=== PATIENT | female | born 1960 | race Caucasian/White ===

== ENCOUNTER → 2021-07-26 | Outpatient (CLI) | payer BC ==
[2021-07-26 17:26] LABS: ALT 26 U/L (8-44); AST 18 U/L (13-35); Chol/HDL Ratio 3.02 Ratio; LDL Cholesterol,Calculated 89.4 mg/dL (0.0-131.0)
== END ==
LOC: LABWHC1 07:27
PROVIDERS: ATTEND Internal Medicine
DX: E78.2 Mixed hyperlipidemia (principal)
CPT/HCPCS: 36415; 80061; 84450; 84460

== ENCOUNTER → 2022-05-02 | Outpatient (CLI) | payer BC ==
[2022-05-02 10:55] LABS: Basophils # (A) 0.08 X 10*3/uL (0.00-0.10); Basophils % (A) 1.8 %; Eosinophils # (A) 0.09 X 10*3/uL (0.04-0.35); Eosinophils % (A) 2.1 %; HCT 43.1 % (37.2-46.3); HGB 14.4 g/dL (12.0-15.0); Immature Grans, Automated 0.2 %; Lymphocytes # (A) 1.62 X 10*3/uL (0.90-5.00); MCH 31.6 pg (27.0-32.0); MCHC 33.4 g/dL (32.0-37.0); MCV 94.7 fL (80.0-97.0); Monocytes # (A) 0.51 X 10*3/uL (0.20-1.00); Monocytes % (A) 11.6 %; NRBC Per 100 WBC 0 /100 WBCS (0.0-0.0); Neutrophils # (A) 2.07 X 10*3/uL (1.80-7.70); Neutrophils % (A) 47.3 %; Platelet Count 263 X 10*3/uL (140-440); RBC 4.55 X 10*6/uL (4.10-5.20); WBC 4.38 X 10*3/uL (4.50-10.00)
[2022-05-02 11:14] LABS: ALT 32 U/L (8-44); AST 26 U/L (13-35); African American GFR (CKD) 98.9 (60.0-200.0); Albumin 4.7 g/dL (3.8-4.9); Albumin/Globulin Ratio 2.21 (1.60-3.17); Alkaline Phosphatase 113 U/L (41-126); BUN/Creat Ratio 11.38 Ratio (12.00-20.00); Blood Urea Nitrogen 8.6 mg/dL (9.0-27.0); Calcium 9.9 mg/dL (8.7-10.3); Carbon Dioxide 28.2 mmol/L (20.0-27.5); Chloride 107 mmol/L (96-109); Chol/HDL Ratio 2.84 Ratio; Globulin 2.1 g/dL (1.6-3.3); Glucose 92 mg/dL (70-110); LDL Cholesterol,Calculated 90.3 mg/dL (0.0-131.0); Non-African American GFR(CKD) 85.3 (60.0-200.0); Potassium 4.9 mmol/L (3.5-5.5); Sodium 144 mmol/L (135-145); Total Protein 6.8 g/dL (6.2-8.2); VLDL Calculation 11.52 mg/dL (5.00-40.00)
== END | disposition home or self-care (01) ==
LOC: LABWHC1 07:02
PROVIDERS: ATTEND Internal Medicine
DX: E78.2 Mixed hyperlipidemia (principal); R10.84 Generalized abdominal pain
CPT/HCPCS: 36415; 80053; 80061; 85025

== ENCOUNTER → 2022-05-23 | Outpatient (CLI) | payer BC ==
--- NOTE | 2022-05-23 10:02 | CT ---
EXAMINATION TYPE: CT abdomen pelvis w con DATE OF EXAM: 05/23/2022 COMPARISON: NONE HISTORY: 61-year-old female R1 0.84, LLQ abdominal pain. TECHNIQUE: Contiguous axial scanning of the abdomen and pelvis following administration of 70 ml Isov ue 300 IV contrast. Delayed images through the kidneys and coronal/sagittal reconstructions performe d. CT DLP: 802 mGycm Automated exposure control for dose reduction was used. FINDINGS: Heart normal size with trace anterior basilar pericardial fluid. Lung bases clear without p leural effusion. The liver, gallbladder, adrenal glands, kidneys, spleen, and pancreas show no gross abnormality. Bile duct measures 5 mm, within normal limits. Portal venous system is patent. Mild to moderate atherosclerotic calcifications infrarenal abdominal aorta and more moderate within t he bilateral common iliac arteries. No dilated small bowel, free fluid, or free air. No mesenteric or retroperitoneal lymphadenopathy. Normal appendix. There is mild to moderate stool in the left side of the colon. Oral contrast progres sed to the junction of the descending and sigmoid colon. No pericolonic inflammatory change seen. Pos sible mild circumferential wall thickening of the rectum. Bladder urine distended. Multiple small pelvic phleboliths. Uterus surgically absent. No abnormal flu id collection in the pelvis or pelvic lymphadenopathy. Bones: There is a fixed grade 1, nearly grade 2 anterolisthesis at L5-S1 with interbody ankylosis. Ac centuated lower lumbar lordosis. Degenerative grade 1 retrolisthesis L4-L5. Grade 1 retrolisthesis T1 0-T11. Dextroconvex curvature of the thoracic spine. IMPRESSION: 1. MILD CIRCUMFERENTIAL WALL THICKENING OF THE RECTUM MAY REFLECT A HEARING STOOL MATERIAL. CORRELATE TO EXCLUDE A NONSPECIFIC MILD COLITIS. 2. OTHERWISE, NO ACUTE INFLAMMATORY PROCESS IDENTIFIED IN THE ABDOMEN OR PELVIS TO EXPLAIN THE PATIEN T'S SYMPTOMS.
== END | disposition home or self-care (01) ==
LOC: RADCTMAIN 06:16
PROVIDERS: ATTEND Family Medicine
DX: R10.84 Generalized abdominal pain (principal); R10.2 Pelvic and perineal pain
CPT/HCPCS: 74177; Q9967

== ENCOUNTER 2022-07-11 09:57 | Day surgery (SDC) | payer BC ==
[2022-07-09 13:38] VITALS: BMI 21.9
[~2022-07-11 09:57] MED LIST: LACTATED RINGERS 1,000 ML IV SCH
[2022-07-11 11:20] VITALS: TEMP 97.4
[2022-07-11] MEDS ORDERED: PROPOFOL 10 MG/ML 20 ML VIAL IV ONE (12:23)
--- NOTE | 2022-07-11 12:35 | P.PCN ---
Date of Procedure: 07/11/22 Procedure(s) Performed: BRIEF HISTORY: Patient is a 61-year-old pleasant male scheduled for an elective colonoscopy as a part of screening for colon cancer. Her mother was diagnosed with colon cancer at age 75. PROCEDURE PERFORMED: Colonoscopy. PREOPERATIVE DIAGNOSIS: Screening for colon cancer. IV sedation per Anesthesia. PROCEDURE: After informed consent was obtained, the patient, was brought into the endoscopy unit. IV sedation was administered by Anesthesia under continuous monitoring. Digital rectal examination was normal. Initially the Olympus CF-160 flexible video colonoscope was then inserted in the rectum, gradually advanced into the cecum without any difficulty. Careful examination was performed as the scope was gradually being withdrawn. Ileocecal valve and the appendiceal orifice were visualized and appeared normal. Prep was excellent. Mucosa of the cecum, ascending colon, transverse colon, descending colon, sigmoid colon, and rectum appeared normal. Retroflexion was performed in the rectum and no lesions were seen. The patient tolerated the procedure well. IMPRESSION: Normal-appearing colon from rectum to cecum with no evidence of colorectal neoplasia. RECOMMENDATIONS: Findings of this examination were discussed with the patient as well as her family.. She was advised to have a repeat screening colonoscopy in 5 years because of the family history of colon cancer.
[2022-07-11 13:01] VITALS: BP 122/74; PULSE 54; RESP 16
== END 2022-07-11 13:19 | disposition home or self-care (01) ==
LOC: ORWHC2ENDO 09:57
PROVIDERS: ATTEND Internal Medicine Gastroenterology
DX: Z12.11 Encounter for screening for malignant neoplasm of colon (principal); Z80.0 Family history of malignant neoplasm of digestive organs; E78.5 Hyperlipidemia, unspecified; M54.9 Dorsalgia, unspecified; Z98.890 Other specified postprocedural states; Z98.41 Cataract extraction status, right eye; Z98.42 Cataract extraction status, left eye; Z79.899 Other long term (current) drug therapy; Z88.5 Allergy status to narcotic agent; Z88.0 Allergy status to penicillin
CPT/HCPCS: 45378; J2704

== ENCOUNTER 2024-10-16 00:38 | Emergency (ER) | payer BC ==
[2024-10-16 00:44] VITALS: RESP 18; TEMP 98.9
--- NOTE | 2024-10-16 01:15 | ED ---
General Adult HPI - General Source: patient Mode of arrival: ambulatory Limitations: no limitations <Abby Cruz - Last Filed: 10/16/24 03:49> - General Source: patient, RN notes reviewed, old records reviewed Mode of arrival: ambulatory Limitations: no limitations - History of Present Illness -: days(s) Quality: aching Consistency: intermittent Improves with: none Worsens with: none Associated Symptoms: loss of appetite, malaise, nausea/vomiting, weakness Treatments Prior to Arrival: none <Fredrick Holland - Last Filed: 10/16/24 06:45> - General Chief complaint: ENT Stated complaint: Pain Time Seen by Provider: 10/16/24 01:15 - History of Present Illness Initial comments: Patient is a 63-year-old female presenting to the ER for evaluation of generalized pain. Patient states for the past week and a half she has had a headache, sore throat and upset stomach. She also reports "sand-like" stool and light brown in color. She reports her abdominal pain is like a cramping pain in her lower abdomen. She denies any hematochezia, melena, nausea, vomiting. Patient has taken [id number] Tylenol without relief of symptoms. Patient states she can "no longer take the pain" which prompted emergency department visit. Patient admits to chills but denies any known fevers, cough, congestion, chest pain, shortness of breath, urinary complaints or peripheral edema. Patient has no significant past medical history. No other complaints. (Abby Cruz) This is a 63-year-old female to the ER for generalized pain generalized pain with nausea vomiting and diarrhea occasional abdominal pain (Fredrick Holland) - Related Data Home Medications Medication Instructions Recorded Confirmed Calcicium 2,400 mg PO DAILY 07/09/22 Evolocumab [Repatha Sureclick] 0 mg SQ Q14D 07/09/22 07/11/22 Ezetimibe [Zetia] 10 mg PO DAILY 07/09/22 07/11/22 Leflunomide [Arava] 20 mg PO HS 07/09/22 07/11/22 Multivit with Calcium,Iron,Min 1 each PO DAILY 07/09/22 07/09/22 [Women's Multivitamin] Turmeric Root Extract [Turmeric] 500 mg PO DAILY 07/09/22 07/09/22 Ubidecarenone [Coenzyme Q10] 200 mg PO DAILY 07/09/22 07/09/22 Allergies Allergy/AdvReac Type Severity Reaction Status Date / Time morphine AdvReac Itching Verified 10/16/24 00:40 Penicillins AdvReac YEAST Verified 10/16/24 00:40 INFECTION Review of Systems ROS Other: All systems not noted in ROS Statement are negative. <Abby Cruz - Last Filed: 10/16/24 03:49> ROS Other: All systems not noted in ROS Statement are negative. <Fredrick Holland - Last Filed: 10/16/24 06:45> ROS Statement: Those systems with pertinent positive or pertinent negative responses have been documented in the HPI. Past Medical History Past Medical History: Hyperlipidemia, Rheumatoid Arthritis (RA) History of Any Multi-Drug Resistant Organisms: None Reported Past Surgical History: Back Surgery, Hysterectomy, Orthopedic Surgery, Tonsillectomy Additional Past Surgical History / Comment(s): BILAT Carpel tunnel, BILAT TENNIS ELBOW, RT MIDDLE EAR BONE REPLACED, SPINAL FUSION. COLONOSCOPY Past Anesthesia/Blood Transfusion Reactions: No Reported Reaction Past Psychological History: No Psychological Hx Reported Smoking Status: Former smoker Past Alcohol Use History: None Reported Past Drug Use History: None Reported - Past Family History Mother Family Medical History: Cancer <Abby Cruz - Last Filed: 10/16/24 03:49> General Exam Limitations: no limitations General appearance: alert, in no apparent distress Respiratory exam: Present: normal lung sounds bilaterally. Absent: respiratory distress, wheezes, rales, rhonchi, stridor Cardiovascular Exam: Present: regular rate, normal rhythm, normal heart sounds. Absent: systolic murmur, diastolic murmur, rubs, gallop, clicks GI/Abdominal exam: Present: soft, tenderness (Lower quadrants), normal bowel sounds Extremities exam: Present: normal inspection, full ROM, normal capillary refill. Absent: tenderness, pedal edema, joint swelling, calf tenderness Neurological exam: Present: alert, oriented X3, CN II-XII intact Skin exam: Present: warm, dry, intact, normal color. Absent: rash <Abby Cruz - Last Filed: 10/16/24 03:49> General appearance: alert, in no apparent distress Head exam: Present: atraumatic, normocephalic, normal inspection Eye exam: Present: normal appearance, PERRL, EOMI. Absent: scleral icterus, conjunctival injection, periorbital swelling ENT exam: Present: normal exam, mucous membranes moist Neck exam: Present: normal inspection. Absent: tenderness, meningismus, lymphadenopathy Respiratory exam: Present: normal lung sounds bilaterally. Absent: respiratory distress, wheezes, rales, rhonchi, stridor Cardiovascular Exam: Present: normal rhythm, tachycardia, normal heart sounds. Absent: systolic murmur, diastolic murmur, rubs, gallop, clicks GI/Abdominal exam: Present: soft, normal bowel sounds. Absent: distended, tenderness, guarding, rebound, rigid Extremities exam: Present: normal inspection, full ROM, normal capillary refill. Absent: tenderness, pedal edema, joint swelling, calf tenderness Back exam: Present: normal inspection Neurological exam: Present: alert, oriented X3, CN II-XII intact Psychiatric exam: Present: normal affect, normal mood Skin exam: Present: warm, dry, intact, normal color. Absent: rash <Fredrick Holland - Last Filed: 10/16/24 06:45> Course <Fredrick Holland - Last Filed: 10/16/24 06:45> Vital Signs 10/16/24 10/16/24 00:41 04:24 Temperature 98.9 F Pulse Rate 122 H 95 Respiratory 18 18 Rate Blood Pressure 117/73 104/72 O2 Sat by Pulse 96 94 L Oximetry - Reevaluation(s) Reevaluation #1: 10/16/24 06:44 Medical records reviewed (Fredrick Holland) Reevaluation #2: 10/16/24 06:45 Patient symptoms improved (Fredrick Holland) Reevaluation #3: 10/16/24 06:45 Patient informed of results questions answered (Fredrick Holland) Medical Decision Making - Lab Data Result diagrams: 10/16/24 01:19 10/16/24 01:19 <Abby Cruz - Last Filed: 10/16/24 03:49> - Lab Data Result diagrams: 10/16/24 01:19 10/16/24 01:19 - Radiology Data Radiology results: report reviewed (CT abdomen pelvis negative for acute disease), image reviewed <Fredrick Holland Donny - Last Filed: 10/16/24 06:45> - Medical Decision Making Was pt. sent in by a medical professional or institution (, [facility], REFRIGERATING ENGINEER HEAD, urgent care, hospital, or penitentiary...) When possible be specific @ -No Did you speak to anyone other than the patient for history (EMS, parent, family, police, friend...)? What history was obtained from this source @ -No Did you review nursing and triage notes (agree or disagree)? Why? @ -I reviewed and agree with nursing and triage notes Were old charts reviewed (outside hosp., previous admission, EMS record, old EKG, old radiological studies, urgent care reports/EKG's, penitentiary records)? Report findings @ -No old charts were reviewed Differential Diagnosis (chest pain, altered mental status, abdominal pain women, abdominal pain men, vaginal bleeding, weakness, fever, dyspnea, syncope, headache, dizziness, GI bleed, back pain, seizure, CVA, palpatations, mental health, musculoskeletal)? @ -Differential Abdominal Pain Women:Appendicitis, Cholecystitis, diverticulosis, ischemic bowel, pancreatitis, hepatitis, UTI, gastroenteritis, AAA, incarcerated hernia, bowel obstruction, constipation, inflammatory bowel, hepatitis, peptic ulcer disease, splenic infarction, perforated viscus, vulvitis, ovarian torsion, PID, kidney stone, placenta abruption, this is not meant to be an all-inclusive list EKG interpreted by me (3pts min.). @ -None done X-rays interpreted by me (1pt min.). @ -None done CT interpreted by me (1pt min.). @ -Pending U/S interpreted by me (1pt. min.). @ -None done What testing was considered but not performed or refused? (CT, X-rays, U/S, labs)? Why? @ -None What meds were considered but not given or refused? Why? @ -None Did you discuss the management of the patient with other professionals (professionals i.e. ANJELICA Apodaca, REFRIGERATING ENGINEER HEAD, lab, RT, psych nurse, social scientist, geosciences professor, teacher, adult probation officer, case manager specialist)? Give summary @ -No Was smoking cessation discussed for >3mins.? @ -No Was critical care preformed (if so, how long)? @ -No Were there social determinants of health that impacted care today? How? (Homelessness, low income, unemployed, alcoholism, drug addiction, transportation, low edu. Level, literacy, decrease access to med. care, long-term, rehab)? @ -No Was there de-escalation of care discussed even if they declined (Discuss DNR or withdrawal of care, Hospice)? DNR status @ -No What co-morbidities impacted this encounter? (DM, HTN, Smoking, COPD, CAD, Cancer, CVA, ARF, Chemo, Hep., AIDS, mental health diagnosis, sleep apnea, morbid obesity)? @ -None Was patient admitted / discharged? Hospital course, mention meds given and route, prescriptions, significant lab abnormalities, going to OR and other pertinent info. @ -[63-year-old female presented to the ER for evaluation of headache, sore throat and abdominal pain. Vitals within acceptable limits. Laboratory studies showed a leukocytosis at 12.7 with a left shift. Viral swabs negative. Urinalysis showing [address] WBC[address] rare bacteria. CT abdomen pelvis pending at time of signout to Dr. Smith at my shift completion. (Abby Cruz) 63 female to ER for evaluation abdominal pain normal CT scan here in the ER lab testing is normal patient given adequate hydration and symptom control here in the ER and can be discharged home (Fredrick Holland) - Lab Data Lab Results 10/16/24 10/16/24 10/16/24 Range/Units 00:45 01:19 01:19 WBC 12.7 H (3.8-10.6) k/uL RBC 3.94 (3.80-5.40) m/uL Hgb 11.9 (11.4-16.0) gm/dL Hct 37.3 (34.0-46.0) % MCV 94.7 (80.0-100.0) fL MCH 30.2 (25.0-35.0) pg MCHC 31.9 (31.0-37.0) g/dL RDW 12.0 (11.5-15.5) % Plt Count 552 H (150-450) k/uL MPV 7.1 Neutrophils % 83 % Lymphocytes % 7 % Monocytes % 6 % Eosinophils % 3 % Basophils % 0 % Neutrophils # 10.6 H (1.3-7.7) k/uL Lymphocytes # 0.9 L (1.0-4.8) k/uL Monocytes # 0.7 (0-1.0) k/uL Eosinophils # 0.4 (0-0.7) k/uL Basophils # 0.0 (0-0.2) k/uL Sodium 133 L (137-145) mmol/L Potassium 3.5 (3.5-5.1) mmol/L Chloride 96 L (98-107) mmol/L Carbon Dioxide 28 (22-30) mmol/L Anion Gap 9 mmol/L BUN 8 (7-17) mg/dL Creatinine 0.62 (0.52-1.04) mg/dL Est GFR (CKD-EPI)AfAm >90 (>60 ml/min/1.73 sqM) Est GFR (CKD-EPI)NonAf >90 (>60 ml/min/1.73 sqM) Glucose 117 H (74-99) mg/dL Calcium 8.8 (8.4-10.2) mg/dL Total Bilirubin 0.8 (0.2-1.3) mg/dL AST 18 (14-36) U/L ALT 11 (4-34) U/L Alkaline Phosphatase 97 (38-126) U/L Total Protein 5.6 L (6.3-8.2) g/dL Albumin 2.9 L (3.5-5.0) g/dL Amylase 48 (30-110) U/L Lipase 71 (23-300) U/L Urine Color Urine Appearance (Clear) Urine pH (5.0-8.0) Ur Specific Worley (1.001-1.035) Urine Protein (Negative) Urine Glucose (UA) (Negative) Urine Ketones (Negative) Urine Blood (Negative) Urine Nitrite (Negative) Urine Bilirubin (Negative) Urine Urobilinogen (<2.0) mg/dL Ur Leukocyte Esterase (Negative) Urine RBC (0-5) /hpf Urine WBC (0-5) /hpf Ur Squamous Epith Cells (0-4) /hpf Amorphous Sediment (None) /hpf Urine Bacteria (None) /hpf Hyaline Casts (0-2) /lpf Urine Mucus (None) /hpf Influenza Type A (PCR) Not Detected (Not Detectd) Influenza Type B (PCR) Not Detected (Not Detectd) RSV (PCR) Not Detected (Not Detectd) SARS-CoV-2 (PCR) Not Detected (Not Detectd) 10/16/24 Range/Units 01:45 WBC (3.8-10.6) k/uL RBC (3.80-5.40) m/uL Hgb (11.4-16.0) gm/dL Hct (34.0-46.0) % MCV (80.0-100.0) fL MCH (25.0-35.0) pg MCHC (31.0-37.0) g/dL RDW (11.5-15.5) % Plt Count (150-450) k/uL MPV Neutrophils % % Lymphocytes % % Monocytes % % Eosinophils % % Basophils % % Neutrophils # (1.3-7.7) k/uL Lymphocytes # (1.0-4.8) k/uL Monocytes # (0-1.0) k/uL Eosinophils # (0-0.7) k/uL Basophils # (0-0.2) k/uL Sodium (137-145) mmol/L Potassium (3.5-5.1) mmol/L Chloride (98-107) mmol/L Carbon Dioxide (22-30) mmol/L Anion Gap mmol/L BUN (7-17) mg/dL Creatinine (0.52-1.04) mg/dL Est GFR (CKD-EPI)AfAm (>60 ml/min/1.73 sqM) Est GFR (CKD-EPI)NonAf (>60 ml/min/1.73 sqM) Glucose (74-99) mg/dL Calcium (8.4-10.2) mg/dL Total Bilirubin (0.2-1.3) mg/dL AST (14-36) U/L ALT (4-34) U/L Alkaline Phosphatase (38-126) U/L Total Protein (6.3-8.2) g/dL Albumin (3.5-5.0) g/dL Amylase (30-110) U/L Lipase (23-300) U/L Urine Color Yellow Urine Appearance Cloudy H (Clear) Urine pH 6.0 (5.0-8.0) Ur Specific [place] 1.020 (1.001-1.035) Urine Protein 1+ H (Negative) Urine Glucose (UA) Negative (Negative) Urine Ketones Trace H (Negative) Urine Blood Trace H (Negative) Urine Nitrite Negative (Negative) Urine Bilirubin Negative (Negative) Urine Urobilinogen 4.0 (<2.0) mg/dL Ur Leukocyte Esterase Negative (Negative) Urine RBC 5 (0-5) /hpf Urine WBC 13 H (0-5) /hpf Ur Squamous Epith Cells 2 (0-4) /hpf Amorphous Sediment Rare H (None) /hpf Urine Bacteria Rare H (None) /hpf Hyaline Casts 24 H (0-2) /lpf Urine Mucus Many H (None) /hpf Influenza Type A (PCR) (Not Detectd) Influenza Type B (PCR) (Not Detectd) RSV (PCR) (Not Detectd) SARS-CoV-2 (PCR) (Not Detectd) Disposition <Abby Cruz - Last Filed: 10/16/24 03:49> Is patient prescribed a controlled substance at d/c from ED?: No Time of Disposition: 04:00 <Fredrick Holland - Last Filed: 10/16/24 06:45> Clinical Impression: Gastroenteritis, Enterocolitis Disposition: HOME SELF-CARE Condition: Good Instructions (If sedation given, give patient instructions): Gastroenteritis (ED), Enteritis (ED) Referrals: Aj Lopez DO [Primary Care Provider] - 1-2 days
[2024-10-16] MEDS: SODIUM CHLORIDE 0.9% 1,000 ML IV ONE (01:32)
[2024-10-16 01:33] LABS: Basophils % (A) 0 %; Eosinophils # (A) 0.4 k/uL (0-0.7); Eosinophils % (A) 3 %; HCT 37.3 % (34.0-46.0); HGB 11.9 gm/dL (11.4-16.0); Lymphocytes # (A) 0.9 k/uL (1.0-4.8); Lymphocytes % (A) 7 %; MCH 30.2 pg (25.0-35.0); MCHC 31.9 g/dL (31.0-37.0); MCV 94.7 fL (80.0-100.0); Mean Platelet Volume 7.1; Monocytes # (A) 0.7 k/uL (0-1.0); Monocytes % (A) 6 %; Neutrophils # (A) 10.6 k/uL (1.3-7.7); Neutrophils % (A) 83 %; Platelet Count 552 k/uL (150-450); RBC 3.94 m/uL (3.80-5.40); WBC 12.7 k/uL (3.8-10.6)
[2024-10-16] MEDS: FAMOTIDINE 20 MG/2 ML VIAL IV STA (01:33)
[2024-10-16] MEDS: KETOROLAC 15 MG/ML 1 ML VIAL IVP STA (01:33)
[2024-10-16 01:38] LABS: Influenza A Not Detected (Not Detectd); Influenza B Not Detected (Not Detectd); RSV Not Detected (Not Detectd)
[2024-10-16 01:43] LABS: ALT 11 U/L (4-34); AST 18 U/L (14-36); African American GFR (CKD) >90 (>60 ml/min/1.73 sqM); Albumin 2.9 g/dL (3.5-5.0); Alkaline Phosphatase 97 U/L (38-126); Amylase 48 U/L (30-110); Anion Gap 9 mmol/L; Blood Urea Nitrogen 8 mg/dL (7-17); Calcium 8.8 mg/dL (8.4-10.2); Carbon Dioxide 28 mmol/L (22-30); Chloride 96 mmol/L (98-107); Glucose 117 mg/dL (74-99); Lipase 71 U/L (23-300); Non-African American GFR(CKD) >90 (>60 ml/min/1.73 sqM); Potassium 3.5 mmol/L (3.5-5.1); Sodium 133 mmol/L (137-145); Total Bilirubin 0.8 mg/dL (0.2-1.3); Total Protein 5.6 g/dL (6.3-8.2)
[2024-10-16 03:14] LABS: Amorphous Sediment,Urine Rare /hpf; Appearance,Urine Cloudy (Clear); Bacteria,Urine Rare /hpf; Bilirubin,Urine Negative (Negative); Blood,Urine Trace (Negative); Color,Urine Yellow; Glucose,Urine (UA) Negative (Negative); Hyaline Casts,Urine 24 /lpf (0-2); Ketones,Urine Trace (Negative); Leukocyte Esterase,Urine Negative (Negative); Mucus,Urine Many /hpf; Nitrite,Urine Negative (Negative); Protein,Urine 1+ (Negative); RBC,Urine 5 /hpf (0-5); Squamous Epithelial Cell,Urine 2 /hpf (0-4); WBC,Urine 13 /hpf (0-5)
--- NOTE | 2024-10-16 03:43 | CT ---
EXAM: CT Abdomen and Pelvis With Intravenous Contrast CLINICAL HISTORY: ITS.REASON CT Reason: lower abd pain TECHNIQUE: Axial computed tomography images of the abdomen and pelvis with intravenous contrast. CTDI is 12.8 mGy and DLP is 602.8 mGy-cm. This CT exam was performed using one or more of the following dose reduction techniques: automated exposure control, adjustment of the mA and/or kV according to patient size, and/or use of iterative reconstruction technique. COMPARISON: 05/23/2022. FINDINGS: Lung bases: Minimal scarring and subsegmental atelectasis noted near the lung bases. Heart: Heart is normal in size. ABDOMEN: Liver: Fatty liver. 0.2 cm simple hepatic cyst. Gallbladder and bile ducts: See below. Pancreas: See below. Spleen: Spleen enhances uniformly. Adrenals: The adrenal glands, the head, body, tail of the pancreas and the gallbladder are unremarkable. Kidneys and ureters: Unremarkable. No renal calculus or hydronephrosis. Stomach and bowel: Consider gastritis. There is diffuse wall thickening of loops of small large bowel compatible with enterocolitis. Small quantity of ingested material in the stomach. PELVIS: Appendix: No findings to suggest acute appendicitis. Bladder: Bladder is underdistended. Reproductive: Unremarkable as visualized. ABDOMEN and PELVIS: Intraperitoneal space: Moderate quantity of ascites. Large quantity of fluid within the pelvis. No free air. Bones/joints: No acute fracture. No dislocation. No spondylolysis. Soft tissues: Ischiorectal fat is clean. Vasculature: Atherosclerotic disease. Portal vein is patent. Atherosclerotic disease of the abdominal aorta extending to the common iliac arteries. Flow is noted within the celiac, SMA, the renal arteries, and MICKEY. No abdominal aortic aneurysm. Lymph nodes: Unremarkable. No retroperitoneal lymphadenopathy. IMPRESSION: 1. Wall thickening of loops of small large bowel compatible with enterocolitis. 2. Ascites. 3. Fatty liver. 4. No gallstones. 5. No renal calculus or hydronephrosis. 6. The appendix is unremarkable.
[2024-10-16 04:26] VITALS: BP 104/72; PULSE 95
[2024-10-16] MEDS: ACET/COD 300 MG/30 MG STARTER PACK 6 TAB BTL PO STA (04:44)
[2024-10-16] MEDS: ONDANSETRON 4 MG ODT STARTER PACK 2 TAB BTL PO STA (04:44)
== END 2024-10-16 04:47 | disposition home or self-care (01) ==
LOC: EC 00:38
DX: K52.9 Noninfective gastroenteritis and colitis, unspecified (principal); Z87.891 Personal history of nicotine dependence
CPT/HCPCS: 36415; 80053; 82150; 83690; 85025; 81001; 87086; 87636; 74177; 99284; 96374; 96375; 96361 ×2; J3490; J1885; S0119; Q9967